=== PATIENT | female | born 1970 | race Caucasian/White ===

== ENCOUNTER → 2016-10-27 | Outpatient (CLI) | payer OTHER | LOC: BC 04:01 | DX: Z12.31 Encounter for screening mammogram for malignant neoplasm of breast (principal) ==

== ENCOUNTER → 2016-11-02 | Outpatient (CLI) | payer OTHER | LOC: RAD 01:28 | DX: N63 Unspecified lump in breast (principal) ==

== ENCOUNTER → 2018-08-23 | Outpatient (CLI) | payer OTHER | LOC: BC 01:12 | DX: N63.10 Unspecified lump in the right breast, unspecified quadrant (principal); N63.20 Unspecified lump in the left breast, unspecified quadrant ==

== ENCOUNTER 2019-01-14 05:32 | Day surgery (SDC) | payer OTHER ==
[~2019-01-14] VITALS: Ht 167.6 cm; Wt 61.2 kg
--- NOTE | ~2019-01-14 | O ---
[facility] [place] [address] [address] OPERATIVE REPORT Name: REINALDO FLORES Room #: DEP [facility] M..#: [id number] Admission: 01/14/19 ������������������ Attend Phys: Reyes Sanchez MD Discharge: 01/14/19 ������������������ Date of : 70 Report #: [id number] THIS REPORT FOR: //name// CC: Khloe Sanchez DATE OF SERVICE: 01/14/2019 PREOPERATIVE DIAGNOSES: Deviated nasal septum with nasal airway obstruction. POSTOPERATIVE DIAGNOSES: Deviated nasal septum with nasal airway obstruction. OPERATIVE PROCEDURE: Nasal septoplasty. ANESTHESIA: General by laryngeal mask. DESCRIPTION OF PROCEDURE: The patient was taken to the operating room and placed in the supine position. General anesthesia was induced by laryngeal mask. Once adequate general anesthesia was obtained, local nasal anesthesia was induced by submucoperichondrial injection of 1% lidocaine with 1:100,000 epinephrine and topical application of cocaine solution. The patient was then draped in a sterile manner. The patient had a nasal septal deviation primarily to the right side. A hemitransfixion incision was placed on the right side of the nose and the mucoperichondrium and mucoperiosteum were elevated off of the septum. The cartilage was incised in front of the bony cartilaginous junction and a portion of cartilage and bone were removed from the mid portion of the septum. There was a septal spur along the floor consisting of hypertrophic cartilage and a fracture of the maxillary crest. The cartilage was removed as a long strip and the maxillary crest was infractured and rongeured. After these maneuvers, the septum sat more in the midline. The hemitransfixion incision was then closed with 4-0 chromic suture and a 4-0 plain mattress suture was placed as well. The patient tolerated the procedure well. Blood loss was approximately 10 mL. The patient was then awoken and taken to the recovery room in stable condition for postoperative monitoring. ��������������������������������������������� ���������������������������������������� By: ��������������������������������������������� [id number] Reyes Sanchez MD /nt
--- NOTE | ~2019-01-14 | H ---
[facility] [address] [address] HISTORY AND PHYSICAL Name: REINALDO FLORES Room #: DEP [facility] [place] M.R.#: [id number] Admission: 01/14/19 ������������������ Attend Phys: Reyes Sanchez MD Discharge: 01/14/19 ������������������ Date of : 70 Report #: [id number] THIS REPORT FOR: //name// CC: Khloe Sanchez DATE OF SERVICE: 01/14/2019 HISTORY OF PRESENT ILLNESS: The patient fell and hit her nose on a deck chair three weeks ago. She had bleeding and bruising of the external nose, but does not think there was much of an injury to the nasal bones. Shortly after that, she felt that she was not breathing very well through the right side of her nose and she could feel something in the inside of her nose with her finger. She has been snoring more since the injury. PHYSICAL EXAMINATION: The nasal bones felt solid. I do not see dorsal deflection. She has a deviated nasal septum anteriorly to the right with the septum almost touching the lateral wall of the nose. She had a good airway on the left. Her oropharynx and oral cavity are clear. IMPRESSION: Nasal septal fracture with deviated nasal septum. PLAN: Nasal septoplasty. ��������������������������������������������� ���������������������������������������� By: ��������������������������������������������� [id number] Reyes Sanchez MD /nt
[~2019-01-14 05:32] MED LIST: ALEVE220 MG PO; AZELASTINE137 MCG/0. INH; CETIRIZINE HCL5 MG PO; IBUPROFEN 200200 M1 PO; SINGULAIR 10 MG10 M1 PO
[2019-01-14 09:00] VITALS: BP 103/53
[2019-01-14 11:26] VITALS: BP 103/53
== END 2019-01-14 12:50 | disposition home or self-care (01) ==
LOC: OR 05:32 → TBA 05:33 → OR 11:36
DX: J34.2 Deviated nasal septum (principal); J34.89 Other specified disorders of nose and nasal sinuses; F17.210 Nicotine dependence, cigarettes, uncomplicated; Z85.828 Personal history of other malignant neoplasm of skin; Z98.890 Other specified postprocedural states; Z88.2 Allergy status to sulfonamides; Z79.899 Other long term (current) drug therapy
CPT/HCPCS: 50010; 50101; 50386; 50398; 56524; 56528; 62110; 62900; 64037; 70005

== ENCOUNTER → 2020-03-16 | Outpatient (CLI) | payer OTHER | LOC: RAD 07:41 | PROVIDERS: ATTEND Obstetrics & Gynecology | DX: Z12.31 Encounter for screening mammogram for malignant neoplasm of breast (principal) ==

== ENCOUNTER → 2021-03-17 | Outpatient (CLI) | payer OTHER | LOC: BC 08:08 | PROVIDERS: ATTEND Obstetrics & Gynecology | DX: Z12.31 Encounter for screening mammogram for malignant neoplasm of breast (principal) ==